=== PATIENT | female | born 1930 | race African-American/Black ===

== ENCOUNTER 2017-07-23 19:51 | Inpatient (IN) | payer MEDICARE, MEDICAID ==
[~2017-07-23] VITALS: Ht 153.7 cm; Wt 73.0 kg
[2017-07-23] MEDS ORDERED: ONDANSETRON HCL 4MG/2ML VIAL IV STA (21:55)
[2017-07-23 22:57] LABS: CHLORIDE 104 mEq/L (98-107)
[2017-07-24 00:13] LABS: BASOPHILS % 1.5 % (0.0-2.0); EOSINOPHILS % 2.1 % (0.0-5.0); HEMATOCRIT. 34.2 % (36.0-48.0); HEMOGLOBIN. 11.5 g/dL (12.0-16.0); LYMPHOCYTES % 48.5 % (20.0-50.0); MEAN CORPUSCULAR HEMOGLOBIN 31.2 pg (28.0-32.0); MEAN CORPUSCULAR VOLUME 92.9 fL (81.0-99.0); MEAN PLATELET VOLUME 8.6 fl (7.4-10.4); MONOCYTES % 9.4 % (2.0-8.0); NEUTROPHILS % 38.5 % (40.0-76.0); PLATELET 278 x1000/uL (130-400); RED BLOOD CELL COUNT 3.68 mill/uL (4.2-5.4)
[2017-07-24 00:22] LABS: D-DIMER 2.1 mg/L FEU (<0.50); INR 1.1; PARTIAL THROMBOPLASTIN TIME 23.6 sec (23.4-31.0); PROTHROMBIN TIME 11.4 sec (9.4-11.6)
[2017-07-24 09:40] VITALS: BP 147/52
[2017-07-24] MEDS ORDERED: LORAZEPAM 0.5MG TABLET PO PRN (11:00)
[2017-07-24] MEDS ORDERED: MAGNESIUM/ALUMINUM HYDROXIDE/SIMETHICONE 30ML UDC PO PRN (11:00)
[2017-07-24] MEDS ORDERED: IPRATROPIUM/ALBUTEROL 0.5-3(2.5)MG/3ML NEB INH PRN (11:00)
[2017-07-24] MEDS ORDERED: NA PHOS,M-B/NA PHOS,DI-BA ENEMA 118ML PR PRN (11:00)
[2017-07-24] MEDS ORDERED: GUAIFENESIN 200MG/10ML SUGAR FREE UDC PO PRN (11:00)
[2017-07-24] MEDS ORDERED: ACETAMINOPHEN 325MG TABLET PO PRN (11:00)
[2017-07-24] MEDS ORDERED: ACETAMINOPHEN 650MG/20.3ML UDC GT PRN (11:00)
[2017-07-24] MEDS ORDERED: CLONIDINE 0.1MG TABLET PO PRN (11:00)
[2017-07-24] MEDS ORDERED: DOCUSATE SODIUM 100MG CAPSULE PO PRN (11:00)
[2017-07-24] MEDS ORDERED: ACETAMINOPHEN 650MG SUPP PR PRN (11:00)
[2017-07-24] MEDS ORDERED: HYDROCODONE/ACETAMINOPHEN 5/325MG TABLET PO PRN (11:00)
[2017-07-24] MEDS ORDERED: ONDANSETRON HCL 4MG/2ML VIAL IV PRN (11:00)
[2017-07-24] MEDS ORDERED: DIPHENHYDRAMINE 50MG/ML VIAL IV PRN (11:00)
[2017-07-24 12:51] VITALS: BP 126/45
[2017-07-24] MEDS: AMLODIPINE 2.5MG TABLET PO SCH ×2 (13:00→20:45)
[2017-07-24] MEDS ORDERED: REGADENOSON 0.4 MG/5 ML IV ONE (13:00)
[2017-07-24 14:00] LABS: CLARITY URINE CLEAR (CLEAR); COLOR URINE YELLOW (YELLOW); KETONES URINE NEGATIVE (NEGATIVE); LEUKOCYTE ESTERASE URINE 2+ (NEGATIVE); NITRITE URINE NEGATIVE (NEGATIVE); OCCULT BLOOD URINE NEGATIVE (NEGATIVE); PROTEIN URINE NEGATIVE (NEGATIVE); SPECIFIC GRAVITY URINE 1.013 (1.005-1.030)
[2017-07-24 14:19] LABS: METHADONE URINE SCREEN NEGATIVE (NEGATIVE); OPIATES URINE SCREEN NEGATIVE (NEGATIVE)
[2017-07-24 14:20] LABS: *AMPHETAMINES SCREEN URINE NEGATIVE (NEGATIVE); *BARBITURATES SCREEN URINE NEGATIVE (NEGATIVE); *BENZODIAZEPINES SCREEN URINE NEGATIVE (NEGATIVE); *COCAINE SCREEN URINE NEGATIVE (NEGATIVE); CANNABINOID URINE SCREEN NEGATIVE (NEGATIVE); PHENCYCLIDINE URINE SCREEN NEGATIVE (NEGATIVE)
[2017-07-24 15:24] LABS: CREATINE KINASE MB FRACTION 0.7 ng/mL (0.5-3.6)
[2017-07-24] MEDS ORDERED: ASPI-986 PO (16:30)
[2017-07-24] MEDS ORDERED: METF500T4 PO (16:30)
[2017-07-24] MEDS ORDERED: LORA1TAB PO (16:30)
[2017-07-24 16:35] VITALS: BP 155/70
[2017-07-24] MEDS ORDERED: TRAV2.5D EACHEYE (16:35)
[2017-07-24] MEDS ORDERED: TRAV2.5D BOTHEYE (16:35)
[2017-07-24] MEDS: LOSARTAN POTASSIUM 25 MG TABLET PO SCH ×2 (17:19→20:29)
[2017-07-24] MEDS: ASPIRIN 81MG EC TABLET PO SCH (17:19)
[2017-07-24] MEDS: METFORMIN HCL 500MG TABLET PO SCH (17:22)
[2017-07-24 19:44] VITALS: BP 144/60
[2017-07-24] MEDS: LORAZEPAM 1MG TABLET PO SCH (20:29)
[2017-07-24] MEDS: HYDROCODONE/ACETAMINOPHEN 10/325MG TABLET PO PRN (20:32)
[2017-07-24] MEDS: ATORVASTATIN CALCIUM 20MG TABLET PO SCH (20:44)
[2017-07-24] MEDS: LATANOPROST 0.005% OPHTH DROPS 2.5ML EACHEYE SCH (20:47)
[2017-07-25 00:20] VITALS: BP 110/52
[2017-07-25 04:44] VITALS: BP 140/54
[2017-07-25 07:02] LABS: EOSINOPHILS % 2.1 % (0.0-5.0); HEMATOCRIT. 33.3 % (36.0-48.0); HEMOGLOBIN. 11.2 g/dL (12.0-16.0); LYMPHOCYTES % 53.2 % (20.0-50.0); MEAN PLATELET VOLUME 8.8 fl (7.4-10.4); MONOCYTES % 9.2 % (2.0-8.0); NEUTROPHILS % 34.5 % (40.0-76.0); PLATELET 282 x1000/uL (130-400); RED BLOOD CELL COUNT 3.62 mill/uL (4.2-5.4); RED CELL DISTRIBUTION WIDTH 14.2 % (11.6-14.6)
[2017-07-25 07:45] LABS: CHLORIDE 107 mEq/L (98-107)
[2017-07-25] MEDS: METFORMIN HCL 500MG TABLET PO SCH ×2 (07:50→18:07)
[2017-07-25 07:55] LABS: PHOSPHORUS 2.9 mg/dL (2.5-4.9)
[2017-07-25 07:56] LABS: LDL CHOLESTEROL 121 mg/dL (5-100)
[2017-07-25 07:58] LABS: HDL CHOLESTEROL 51 mg/dL (40-59)
[2017-07-25 07:59] LABS: CREATINE KINASE 64 IU/L (26-192)
[2017-07-25 08:00] VITALS: BP 140/66
[2017-07-25 08:00] LABS: CREATINE KINASE MB FRACTION 0.5 ng/mL (0.5-3.6)
[2017-07-25 08:01] LABS: T4 FREE 0.98 ng/dL (0.76-1.46)
[2017-07-25] MEDS: LOSARTAN POTASSIUM 25 MG TABLET PO SCH ×2 (09:00→20:47)
[2017-07-25] MEDS: AMLODIPINE 2.5MG TABLET PO SCH ×2 (09:00→20:47)
[2017-07-25] MEDS: ASPIRIN 81MG EC TABLET PO SCH ×2 (09:00→13:45)
[2017-07-25] MEDS ORDERED: REGADENOSON 0.4 MG/5 ML IV ONE (11:17)
[2017-07-25] MEDS: HYDROCODONE/ACETAMINOPHEN 10/325MG TABLET PO PRN (13:42)
[2017-07-25 16:00] VITALS: BP 130/57
[2017-07-25] MEDS ORDERED: MAGNESIUM 2 G PREMIX 50 ML IV SCH (17:00)
[2017-07-25 20:00] VITALS: BP 141/69
[2017-07-25] MEDS: ATORVASTATIN CALCIUM 20MG TABLET PO SCH (20:47)
[2017-07-25] MEDS: LORAZEPAM 1MG TABLET PO SCH (20:58)
[2017-07-25] MEDS: LATANOPROST 0.005% OPHTH DROPS 2.5ML EACHEYE SCH (21:10)
[2017-07-25 21:30] VITALS: BP 141/69
== END 2017-07-25 22:53 | disposition home or self-care (01) | DRG 303 ==
LOC: ER 20:05 → 6WST 07-24 00:38 → ENRESERV 07-24 07:49
PROVIDERS: ADMIT Internal Medicine; ATTEND Internal Medicine
DX: I25.10 Atherosclerotic heart disease of native coronary artery without angina pectoris (principal); Z86.74 Personal history of sudden cardiac arrest; E11.9 Type 2 diabetes mellitus without complications; J44.9 Chronic obstructive pulmonary disease, unspecified; E78.00 Pure hypercholesterolemia, unspecified; I10 Essential (primary) hypertension; K25.9 Gastric ulcer, unspecified as acute or chronic, without hemorrhage or perforation; M19.90 Unspecified osteoarthritis, unspecified site; Z79.82 Long term (current) use of aspirin; Z79.84 Long term (current) use of oral hypoglycemic drugs; Z82.49 Family history of ischemic heart disease and other diseases of the circulatory system; Z98.61 Coronary angioplasty status; I25.2 Old myocardial infarction; Z87.891 Personal history of nicotine dependence; Z87.11 Personal history of peptic ulcer disease; Z79.899 Other long term (current) drug therapy
CPT/HCPCS: 36415; 71045; 78452; 80053; 80061; 80305; 81003; 82550; 82553; 82962; 83690; 83735; 83880; 84100; 84439; 84443; 84481; 84484; 85025; 85379; 85610; 85730; 87086; 93005; 93017; 93306; 96374; 97162; 99285; A9500; J2405; J2785; J3475; J7050